=== PATIENT | male | born 1975 | race Caucasian/White ===

== ENCOUNTER 2025-01-01 08:21 | Outpatient (AMB) | payer OTHER, SELFPAY ==
--- NOTE | 2025-01-01 08:23 | A.OFFVIS_ITS ---
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 He started noticing tremors in 2011 - in his hands and usually with activity and posture. The tremors are almost the same since then and also has some tremors in his legs . It is worse when he is anxious and stressed. No family history tremors No h.o anxiety or depression No h/o head injury. He works in [place]. He also reports numbness 1 year ago. He noticed after he was mountain biking for 1 hr and melissa feet were numb . It self resolved in few hrs. But last winter he started noticing his feet and hands were numb and also some discoloration . He is good when the weather is warm No neck or back . No tingling. He has EMG Apr 2024 - at [facility] Medical History Tremors of nervous system Hydrocele sac Physical Exam Vital Signs: Last Vital Signs Pulse 58 01/01/25 08:25 BP 118/82 01/01/25 08:25 Pulse Ox 100 01/01/25 08:25 Oxygen Delivery Method Room Air 01/01/25 08:25 BMI result Body Mass Index 24.6 Const General: cooperative, healthy appearing, comfortable and no acute distress Nutritional Appearance: average body habitus Orientation/consciousness: patient oriented x3 Eyes Pupils: Equal, round and reactive pupils present Neuro Other: mild postural and action tremors melissa FFM and foot taps normal no cogwheel rigidity General: patient oriented x3, gait normal, tone normal, moves all extremities and no focal motor deficits Cranial nerves: Yes Equal, round and reactive pupils present, Yes Bilaterally intact EOM present, Yes Nystagmus not present, Yes Normal facial strength present, Yes Midline tongue present, Yes Symmetric palate elevation present, Yes Ability to bilaterally rotate head present and Yes Ability to bilaterally elevate shoulders present Cognition (Neuro): normal cognition Gait exam (Neuro): Normal gait present Motor exam (neuro): 5/5 motor strength present throughout and Normal motor muscle tone present throughout Deep tendon reflexes (DTR's): Right triceps reflex intensity grade: 2+, Left triceps reflex intensity grade: 2+, Rt Biceps (C5, C6): 2+, Left biceps reflex intensity grade: 2+, Right brachioradialis reflex intensity grade: 2+, Left brachioradialis reflex intensity grade: 2+, Right patellar reflex intensity grade: 2+ and Left patellar reflex intensity grade: 2+ Coordination: [id number] test normal Assessment & Plan Assessment & Plan (1) 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 Will get EMG results from [facility] for review Coding Level of Care Code New Pt Level 4 (97725) Diagnoses Tremors of nervous system R25.1
[2025-01-01 08:25] VITALS: BP 118/82; PULSE 58; O2SAT 100; BMI 24.6
--- OUTSIDE RECORDS SUMMARY | 2025-01-01 08:28 | XMS_ITS | Clinical Summary ---
Author Organization [facility] Address [address] [place] [address] Phone Care Team Providers Care Food Production Manager Name Role Phone Jonel Joshi DO Primary Care Provider [phone] Social History Tobacco Use Types Packs/Day Years Used Date Smoking Tobacco: Never Assessed Sex and Gender Information Value Date Recorded Sex Assigned at Not on file Legal Sex Male 3:43 PM EDT Gender Identity Not on file Sexual Orientation Not on file Plan of Treatment Health Maintenance Due Date Last Done Comments Hepatitis B Vaccines (1 of 3 - 19+ 3-dose series) 1992 Pneumococcal Vaccine: 50+ Ye ars (1 of 1 - PCV) 08/09/2023 Zoster Vaccines (1 of 2) 08/09/2023 COVID-19 Vaccine ( - 2023-2 5 season) 2024 Cholesterol Screening (Lipid Panel) 03/17/2024 Colorectal Cancer Screening: Colonoscopy 03/17/2024 HIV Screening 03/17/2024 Hepatitis C Screening 03/17/2024 Social Influencers of Health Screening 03/17/2024 Depression Screening 05/22/2024 Influenza Vaccine (#1) 2025 DTaP,Tdap,and Td Vaccines (2 - Td or Tdap) 02/06/2034 02/07/2024 HIB Vaccines Aged Out No longer eligi ble based on patient's age to complete this topic HPV Vaccines Aged Out No longer eligi ble based on patient's age to complete this topic Hepatitis A Vaccines Aged Out No long er eligible based on patient's age to complete this topic IPV Vaccines Aged Out No longer eligi ble based on patient's age to complete this topic MMR Vaccines Aged Out No longer eligi ble based on patient's age to complete this topic Meningococcal ACWY Vaccine Aged Out N o longer eligible based on patient's age to complete this topic Meningococcal B Vaccine Aged Out No l onger eligible based on patient's age to complete this topic RSV Immunization Patients Un lisa 20 months Aged Out No longer eligible b ased on patient's age to complete this topic Varicella Vaccines Aged Out No longer eligible based on patient's age to complete this topic Insurance [facility] Care Teams Food Production Manager Relationship Specialty Start Date End Date Jonel Joshi DO [address] [place] [phone] PCP - General Internal Medicine 05/20/24
== END 2025-01-01 09:05 | disposition home or self-care (01) ==
LOC: HO.HSMS 08:21
PROVIDERS: PCP Internal Medicine; Visit Provider Psychiatry & Neurology Neurology
DX: R25.1 Tremor, unspecified (principal)
CPT/HCPCS: 99204